=== PATIENT | female | born 1990 | race Caucasian/White ===

== ENCOUNTER 2017-01-18 06:24 | Emergency (ER) | payer OTHER ==
[2017-01-18] MEDS ORDERED: ASPIRIN 81 MG TABLET, CHEWABLE PO ONE (08:02)
--- NOTE | 2017-01-18 08:26 | EKG REPORT ---
SEVERITY:- NORMAL ECG - SINUS RHYTHM : Confirmed by: Jonathon Herrera 18-Jan-2017 08:25:51
[2017-01-18] MEDS ORDERED: OXYCODONE-ACETAMINOPHEN 5-325 MG TABLET PO ONE (08:29)
[2017-01-18] MEDS ORDERED: ONDANSETRON 4 MG TAB.RAPDIS PO ONE (08:29)
--- NOTE | 2017-01-18 09:15 | ER Document Report ---
ED General - General Chief Complaint: Chest Pain Stated Complaint: CHEST DISCOMFORT Mode of Arrival: Medic Information source: Patient Notes: Patient presents to the emergency department with left-sided chest pain increased pain when she takes a deep breath. Reports pain radiates to her back. She denies fever vomiting diarrhea. She denies trauma. Patient does have IUD does not smoke. Denies cough, denies hemoptysis Denies past medical history of DVTs or PEs. Patient reports symptoms started yesterday while at work, increased this am. Reports the pain is constant and increases with a deep breath. Patient is very tearful and emotional. TRAVEL OUTSIDE OF THE [place] IN LAST 30 DAYS: No - HPI Onset: Yesterday Onset/Duration: Persistent Quality of pain: Sharp Severity: Severe Pain Level: 5 Associated symptoms: None Exacerbated by: Coughing, Deep breathing Relieved by: Denies Similar symptoms previously: No Recently seen / treated by doctor: No - Related Data Allergies/Adverse Reactions: No Known Allergies Allergy (Verified 03/26/14 07:24) Past Medical History - General Information source: Patient Last Menstrual Period: 3 weeks ago, IUD - Social History Smoking Status: Never Smoker Cigarette use (# per day): No Frequency of alcohol use: Occasional Drug Abuse: None Occupation: [employer] – [place] Family History: None Patient has suicidal ideation: No Patient has homicidal ideation: No - Medical History Medical History: Negative - Past Medical History Cardiac Medical History: Denies: Hx Coronary Artery Disease, Hx Heart Attack, Hx Hypertension Pulmonary Medical History: Denies: Hx Asthma, Hx Bronchitis, Hx COPD, Hx Pneumonia Neurological Medical History: Denies: Hx Cerebrovascular Accident, Hx Seizures Renal/ Medical History: Denies: Hx Peritoneal Dialysis Musculoskeltal Medical History: Denies Hx Arthritis Past Surgical History: Reports: Hx Tonsillectomy. Denies: Hx Hysterectomy - Immunizations Hx Diphtheria, Pertussis, Tetanus Vaccination: Yes Review of Systems - Review of Systems Notes: Review HPI for review of systems., All other systems negative Physical Exam - Vital signs Vitals: Temp Pulse Resp BP Pulse Ox 98.1 F 80 17 105/64 99 01/18/17 06:47 01/18/17 06:47 01/18/17 06:47 01/18/17 06:47 01/18/17 06:47 - Notes Notes: PHYSICAL EXAMINATION: GENERAL: WELL APPEARING, TEARFUL, NONTOXIC LOOKING HEAD: Atraumatic, normocephalic. EYES: Pupils equal round and reactive to light, extraocular movements intact, sclera anicteric, conjunctiva are normal. ENT: nares patent, oropharynx clear without exudates. Moist mucous membranes. NECK: Normal range of motion, supple without lymphadenopathy LUNGS: CTAB and equal. No wheezes rales or rhonchi. HEART: Regular rate and rhythm without murmurs Chest wall ttp left sternal border, under left breast, no erythema, no swelling ABDOMEN: Soft, no tenderness. No guarding, no rebound BACK: Denies pain EXTREMITIES: Normal range of motion, no pitting edema. No cyanosis. NEUROLOGICAL: Cranial nerves grossly intact. Normal sensory/motor PSYCH: Normal mood, normal affect. SKIN: Warm, Dry, normal turgor, no rashes or lesions noted Course - Re-evaluation Re-evalutation: 01/18/17 09:15 Feel like this may be costochondritis but patient is very emotional, anxious. Reports advil did not help pain. Tearful when her chest wall was palpated and when she takes a deep breath. VSS, no increased HR, RR even/unlabored, will treat for UTI and chest wall pain 01/18/17 13:10 Patient was instructed on all labs. No leukocytosis chest x-ray negative patient does have a positive UTI will be treated for this. Patient was also instructed on the importance of taking anti-inflammatory for chest pain.. She will be prescribed some Percocet to help with the acute pain. She verbalized understanding to all instructions. Patient was instructed if she started feeling shortness of breath difficulty breathing to return to the hospital immediately. - Vital Signs Vital signs: Temp Pulse Resp BP Pulse Ox 97.7 F 70 16 102/58 L 100 01/18/17 13:04 01/18/17 13:04 01/18/17 13:04 01/18/17 13:04 01/18/17 13:04 - Laboratory Result Diagrams: 01/18/17 10:55 01/18/17 10:55 Laboratory results interpreted by me: 01/18/17 01/18/17 01/18/17 10:02 10:55 10:55 Hgb 11.5 L Hct 33.9 L Creatinine 0.45 L Urine Ketones TRACE H Urine Nitrite POSITIVE H - Diagnostic Test Radiology reviewed: Image reviewed, Reports reviewed - IMPRESSION: NO SIGNIFICANT RADIOGRAPHIC FINDING IN THE CHEST Discharge - Discharge Clinical Impression: Chest wall pain Urinary tract infection Qualifiers: Urinary tract infection type: site unspecified Hematuria presence: without hematuria Qualified Code(s): N39.0 - Urinary tract infection, site not specified Condition: Stable Disposition: HOME, SELF-CARE Instructions: Chest Wall Pain ([facility]), Ibuprofen (General) ([facility]), Nitrofurantoin ([facility]), Urinary Tract Infection ([facility]), Oral Narcotic Medication ([facility]) Additional Instructions: *You have been evaluated for chest wall pain, UTI *Take medication as prescribed *Push fluids *Follow up with your primary care provider *Plan urine recheck in one week *Return to ED for worsening condition, changes, needs Prescriptions: Ibuprofen [Motrin 800 mg Tablet] 800 mg PO TID #30 tablet Nitrofurantoin/Nitrofuran Mac [Macrobid 100 mg Capsule] 100 mg PO BID #20 capsule Oxycodone HCl/Acetaminophen [Percocet 5-325 mg Tablet] 1 - 2 tab PO ASDIR PRN # 15 tablet PRN Reason: Forms: Return to Work
[2017-01-18 11:01] LABS: APPEARANCE,URINE SLIGHTLY-CLOUDY; BILIRUBIN,URINE NEGATIVE (NEGATIVE); GLUCOSE, URINE NEGATIVE (NEGATIVE); KETONES,URINE TRACE mg/dL (NEGATIVE); LEUKOCYTE ESTERASE,URINE NEGATIVE (NEGATIVE); NITRITE,URINE POSITIVE (NEGATIVE); PROTEIN,URINE NEGATIVE (NEGATIVE); URINE SPECIFIC GRAVITY 1.019; UROBILINOGEN,URINE NEGATIVE mg/dL (<2.0)
[2017-01-18 11:57] LABS: ABSOLUTE EOSINOPHILS # (AUTO) 0.1 10^3/uL (0.0-0.6); ABSOLUTE LYMPHOCYTES (AUTO) 1.1 10^3/uL (0.5-4.7); ABSOLUTE MONOCYTES (AUTO) 0.3 10^3/uL (0.1-1.4); ABSOLUTE NEUT (AUTO) 3.5 10^3/uL (1.7-8.2); BASOPHILS % (AUTO) 0.1 % (0-2); EOSINOPHILS % (AUTO) 1.4 % (0-6); HEMATOCRIT 33.9 % (36.0-47.0); HEMOGLOBIN 11.5 g/dL (12.0-15.5); HGB HCT DIFFERENCE 0.6; LYMPHOCYTES % (AUTO) 21.5 % (13-45); MEAN CORPUSCULAR HEMOGLOBIN 28.7 pg (27.0-33.4); MEAN CORPUSCULAR HGB CONC 33.8 g/dL (32.0-36.0); MEAN CORPUSCULAR VOLUME 85 fl (80-97); RED BLOOD COUNT 3.99 10^6/uL (3.72-5.28); RED CELL DISTRIBUTION WIDTH 13.2 % (11.5-14.0)
[2017-01-18 12:00] LABS: PROTHROMBIN TIME 14.1 SEC (11.4-15.4)
[2017-01-18 12:24] LABS: ALANINE AMINOTRANSFERASE 21 U/L (9-52); ALBUMIN 3.9 g/dL (3.5-5.0); ALKALINE PHOSPHATASE 50 U/L (38-126); ANION GAP 11 (5-19); ASPARTATE AMINO TRANSFERASE 29 U/L (14-36); BILIRUBIN,DIRECT 0.2 mg/dL (0.0-0.4); BILIRUBIN,TOTAL 0.7 mg/dL (0.2-1.3); BLOOD UREA NITROGEN 7 mg/dL (7-20); CALCIUM 9.6 mg/dL (8.4-10.2); CARBON DIOXIDE 25 mmol/L (22-30); CHLORIDE 106 mmol/L (98-107); CREATININE RESULT 0.45 mg/dL (0.52-1.25); GLUCOSE 80 mg/dL (75-110); POTASSIUM 4.5 mmol/L (3.6-5.0); TOTAL PROTEIN 7.8 g/dL (6.3-8.2)
[2017-01-18 13:05] VITALS: BP 102/58
== END 2017-01-18 13:04 | disposition home or self-care (01) ==
LOC: ER 06:24
DX: R07.89 Other chest pain (principal); F41.9 Anxiety disorder, unspecified; N39.0 Urinary tract infection, site not specified; Z97.5 Presence of (intrauterine) contraceptive device
CPT/HCPCS: 93005; 99285; 36415; 84703; 85025; 85610; 80053; 81001; 71020; 93010; S0119